=== PATIENT | female | born 1965 | race Caucasian/White ===

== ENCOUNTER 2016-11-14 11:33 | Emergency (ER) | payer OTHER ==
[2016-11-14 12:29] LABS: BASOPHIL 0.4 % (0-2); EOSINOPHIL 1.6 % (0-5); HCT 44.4 % (37.0-47.0); HGB 14.5 g/dl (12.5-16.0); LYMPHOCYTE 20.8 % (15-48); MCH 26.5 pg (25.0-31.0); MCHC 32.7 g/dL (32.0-36.0); MCV 81.2 fL (78.0-100.0); MONOCYTE 6.2 % (0-12); MPV 9.4 fL (6.0-9.5); PLT 401 K/uL (150-400); RBC 5.47 M/uL (4.20-5.40); RDW 15.2 % (11.5-14.0); WBC 7.9 K/uL (4.0-10.5)
[2016-11-14 12:53] LABS: CREATININE 0.9 mg/dL (0.5-1.0); POTASSIUM 4.1 mmol/L (3.5-5.1)
== END 2016-11-14 14:56 | disposition home or self-care (01) ==
LOC: FER 11:33
PROVIDERS: Nurse Practitioner
DX: R51 Headache (principal); M54.2 Cervicalgia; E03.9 Hypothyroidism, unspecified
CPT/HCPCS: 36415; 70450; 80048; 84443; 85025; J1100; J2765; J2800